=== PATIENT | female | born 1950 | race Hispanic/Latino ===

== ENCOUNTER → 2025-08-21 | Outpatient (CLI) | payer OTHER, MEDICARE ==
--- NOTE | 2025-08-21 22:55 | HMCIMG ---
EXAMINATION: MRI of the Right Knee Without Contrast CLINICAL HISTORY: Right knee joint effusion and pain. TECHNIQUE: Multiplanar, multisequence MRI of the right knee was performed without intravenous contrast. COMPARISON: No prior studies available for comparison. FINDINGS: Osseous Structures and Alignment: Marginal osteophyte formation is present along the medial and lateral tibial and femoral condyles, as well as along the superior and inferior poles of the patella. Spiking of the tibial intercondylar eminence is noted. There is significant joint space narrowing involving the medial tibiofemoral compartment. Subchondral edema and tiny subchondral cysts are present, predominantly in the medial compartment and patellofemoral articulation. Articular Cartilage: Multifocal, irregular, and asymmetric thinning of the articular cartilage is present involving the medial patellar facet, medial femoral condyle, medial tibial plateau, and tibial intercondylar region. There is near full-thickness cartilage loss in the medial tibiofemoral compartment with associated subchondral marrow edema. Menisci: The medial meniscus demonstrates significant mucoid degeneration with a chronic truncation tear of the body, along with circumferential horizontal tears involving both the anterior and posterior horns. The medial meniscus is extruded beyond the joint margin. The lateral meniscus shows significant mucoid degeneration with a circumferential horizontal tear involving the body and anterior horn. Cruciate Ligaments: Mucoid degeneration of the anterior cruciate ligament is present, involving both the posteromedial and anterolateral bundles, without evidence of tear. Mild mucoid degeneration of the posterior cruciate ligament is also noted, without tear. Collateral Ligaments and Supporting Structures: Significant mucoid degeneration is present involving the medial meniscotibial and meniscofemoral ligaments. The superficial component of the medial collateral ligament demonstrates mucoid degeneration. Mild mucoid degeneration of the fibular (lateral) collateral ligament is present. Joint Effusion and Synovium: Mild synovial joint effusion is present. No loose bodies are identified. Extensor Mechanism: The quadriceps tendon and patellar tendon are intact. Surrounding Soft Tissues: No focal soft tissue mass or collection is identified. IMPRESSION: * Advanced osteoarthritic changes of the right knee, most pronounced in the medial tibiofemoral compartment, characterized by marked joint space narrowing, marginal osteophyte formation, extensive articular cartilage loss, and associated subchondral edema and cystic changes. * Complex degenerative tearing of the medial meniscus with body truncation, circumferential horizontal tears of the anterior and posterior horns, and meniscal extrusion. * Circumferential horizontal tear of the body and anterior horn of the lateral meniscus with associated mucoid degeneration. * Mucoid degeneration of the anterior cruciate ligament and posterior cruciate ligament without ligamentous tear. * Degenerative changes involving the medial collateral ligament complex and mild involvement of the fibular collateral ligament. * Mild knee joint effusion. /Irving
== END | disposition home or self-care (01) ==
LOC: RAH 14:06
PROVIDERS: ATTEND Internal Medicine
DX: S83.231A Complex tear of medial meniscus, current injury, right knee, initial encounter (principal); S83.281A Other tear of lateral meniscus, current injury, right knee, initial encounter; M17.11 Unilateral primary osteoarthritis, right knee; M25.461 Effusion, right knee; M25.761 Osteophyte, right knee; R60.0 Localized edema; X58.XXXA Exposure to other specified factors, initial encounter; Y93.89 Activity, other specified; Y92.89 Other specified places as the place of occurrence of the external cause; Y99.8 Other external cause status
CPT/HCPCS: 73721